=== PATIENT | male | born 1985 | race Caucasian/White ===

== ENCOUNTER → 2017-11-12 | Emergency (ER) | payer MEDICAID ==
[~2017-11-12] VITALS: Ht 180.3 cm; Wt 79.0 kg
[2017-11-12 16:40] VITALS: BP 157/101
== END | disposition home or self-care (01) ==
LOC: ER 16:29
DX: K40.20 Bilateral inguinal hernia, without obstruction or gangrene, not specified as recurrent (principal)
CPT/HCPCS: 99281

== ENCOUNTER 2018-11-26 15:18 | Emergency (ER) | payer MEDICAID ==
[~2018-11-26] VITALS: Ht 180.3 cm; Wt 82.0 kg
[2018-11-26 15:32] VITALS: BP 170/107
[2018-11-26] MEDS ORDERED: LIDOcaine 1% w/epiNEPHrine 1:200,000 30ml vial IM ONE (18:15)
[2018-11-26] MEDS ORDERED: bacitracin 15gm ointment TP ONE (18:15)
[2018-11-26] MEDS ORDERED: CEPH-572 PO (19:13)
== END 2018-11-26 22:17 | disposition home or self-care (01) ==
LOC: ER 15:19
DX: S61.214A Laceration without foreign body of right ring finger without damage to nail, initial encounter (principal); Z79.899 Other long term (current) drug therapy; W23.0XXA Caught, crushed, jammed, or pinched between moving objects, initial encounter; Y93.89 Activity, other specified; Y92.89 Other specified places as the place of occurrence of the external cause; Y99.8 Other external cause status
CPT/HCPCS: 29130; 73130; 99283